=== PATIENT | female | born 1985 | race Caucasian/White ===

== ENCOUNTER → 2019-03-24 | Outpatient (CLI) | payer BC ==
[2019-03-28 14:07] LABS: HPV 16 Negative (Negative); HPV 18 Negative (Negative); HPV OTHER HR TYPES Negative (Negative)
== END | disposition home or self-care (01) ==
LOC: LAB SHORT 15:39 → LAB 15:39
PROVIDERS: Nurse Practitioner Women's Health
DX: Z12.4 Encounter for screening for malignant neoplasm of cervix (principal); Z91.89 Other specified personal risk factors, not elsewhere classified
CPT/HCPCS: 87624; G0123

== ENCOUNTER 2020-06-21 10:36 | Day surgery (SDC) | payer BC ==
[~2020-06-21] VITALS: Ht 160 cm; Wt 76.5 kg
--- NOTE | 2020-06-21 13:07 | NUR ---
06/21/20 1307 Shefali Spencer 0.5% BUPIVACAINE 1:200,000 MIXED IN OR BY RN 10CC USED BY SURGEON
--- NOTE | 2020-06-21 13:37 | NUR ---
06/21/20 1337 Bianka Garcia PATIENT WAS SIPPING ON WATER AND EATING CRACKER AND BEGAN TO FEEL NAUSEA ZOFRAN GIVEN PER MD ORDER
== END 2020-06-21 14:24 | disposition home or self-care (01) ==
LOC: ORSCSDS 10:36
DX: D27.0 Benign neoplasm of right ovary (principal); N83.291 Other ovarian cyst, right side; R10.2 Pelvic and perineal pain; N80.9 Endometriosis, unspecified; E66.9 Obesity, unspecified; Z68.30 Body mass index [BMI] 30.0-30.9, adult
CPT/HCPCS: 88305; A9270; J0171; J0690; J1100; J1885; J2250; J2370; J2405; J2704; J3010; J7120

== ENCOUNTER 2021-06-06 09:16 | Day surgery (SDC) | payer BC ==
[~2021-06-06] VITALS: Ht 160 cm; Wt 78.1 kg
--- NOTE | 2021-06-06 11:01 | NUR ---
06/06/21 1101 Vickie White NO DEFICIT FROM HYSTEROSCOPY IUD IDENTIFIED AND DISCARDED PER SURGEON. STRING ATTACHED.
== END 2021-06-06 11:30 | disposition home or self-care (01) ==
LOC: ORSCSDS 09:16
PROVIDERS: Obstetrics & Gynecology
PROC: 0UC98ZZ Extirpation of Matter from Uterus, Via Natural or Artificial Opening Endoscopic (ICD-10-PCS; principal; 2021-06-06 10:30)
DX: T83.32XA Displacement of intrauterine contraceptive device, initial encounter (principal); E66.9 Obesity, unspecified; Z68.31 Body mass index [BMI] 31.0-31.9, adult; Z79.899 Other long term (current) drug therapy
CPT/HCPCS: A9270; J1100; J1885; J2250; J2405; J2704; J3010

== ENCOUNTER 2024-12-14 11:20 | Emergency (ER) | payer OTHER, BC ==
[~2024-12-14] VITALS: Ht 160 cm; Wt 46.3 kg
[2024-12-14] MEDS ORDERED: NS 1,000 ML IV SCH (11:45)
[2024-12-14] MEDS ORDERED: Metoclopramide HCl 5MG / ML 2ML Vial IV ONE (11:45)
[2024-12-14] MEDS ORDERED: DiphenhydrAMINE HCl 50 MG/ML 1ML Vial IV ONE (11:45)
[2024-12-14 12:04] LABS: BASOPHILS ABSOLUTE AUTO 0.05 K/mm3 (0.00-0.23); BASOPHILS PERCENT AUTO 1 % (0-2); EOSINOPHILS ABSOLUTE AUTO 0.14 K/mm3 (0.00-0.68); EOSINOPHILS PERCENT AUTO 2 % (0-6); Hematocrit 31.5 % (33.0-51.0); Hemoglobin 9.5 g/dL (11.5-16.0); IMMATURE GRAN ABSOLUTE AUTO 0.03 K/mm3 (0.00-0.10); IMMATURE GRAN PERCENT AUTO 0 % (0-1); LYMPHOCYTES ABSOLUTE AUTO 1.72 K/mm3 (0.84-5.20); LYMPHOCYTES PERCENT AUTO 23 % (21-46); MONOCYTES ABSOLUTE AUTO 0.31 K/mm3 (0.16-1.47); MONOCYTES PERCENT AUTO 4 % (4-13); Mean Corpuscular HGB Conc 30.2 g/dL (31.5-36.5); Mean Corpuscular Volume 66 fL (80-100); NEUTROPHILS ABSOLUTE AUTO 5.29 K/mm3 (1.96-9.15); NEUTROPHILS PERCENT AUTO 70 % (41-73); NRBC ABSOLUTE 0.00 K/mm3 (0.00-0.02); NRBC Auto 0.0 /100 WBC (0.0-0.2); Platelet Count 493 K/mm3 (150-400); RDW Coefficient Variation 18.6 % (11.7-14.2); RDW Standard Deviation 39.8 fL (35.1-46.3)
[2024-12-14 12:14] LABS: Alanine Aminotransfer (ALT/SGP 37.0 U/L (12-78); Albumin, Blood 3.3 g/dL (3.4-5.0); Albumin/Globulin Ratio 1.0 (0.8-1.8); Anion Gap 8.0 mmol/L (3-11); Aspartate Aminotrans (AST/SGOT 26.0 U/L (12-37); Bilirubin, Total 1.3 mg/dL (0.1-1.0); Blood Urea Nitrogen 14.0 mg/dL (8-24); CO2, Blood 24.0 mmol/L (21-32); Calcium, Blood 8.6 mg/dL (8.5-10.1); Chloride, Blood 112.0 mmol/L (98-108); Creatinine, Blood 0.64 mg/dL (0.40-1.00); Globulin, Blood 3.4 g/dL (2.2-4.0); Glucose, Blood 79.0 mg/dL (70-99); Potassium, Blood 4.1 mmol/L (3.5-5.5); Sodium, Blood 140.0 mmol/L (136-145); Total Protein, Blood 6.7 g/dL (6.4-8.2)
[2024-12-14] MEDS ORDERED: Dexamethasone Sod Phos 10 MG/ML 1ML VIAL IV ONE (13:15)
[2024-12-14 13:30] VITALS: BP 135/77
== END 2024-12-14 14:03 | disposition home or self-care (01) ==
LOC: ER 11:20
PROVIDERS: Emergency Medicine
DX: O99.355 Diseases of the nervous system complicating the puerperium (principal); G43.909 Migraine, unspecified, not intractable, without status migrainosus
CPT/HCPCS: 70470; 80053; 85025; 96361; 96374; 96375; 99284-25; J1100; J1200; J2765; J7030; Q9967